=== PATIENT | male | born 1990 | race Caucasian/White ===

== ENCOUNTER → 2021-09-18 | Outpatient (CLI) | payer OTHER | LOC: HEART 5 09-12 15:30 → ECHO 13:15 | DX: R07.9 Chest pain, unspecified (principal); R60.9 Edema, unspecified | CPT/HCPCS: Q9957 ==

== ENCOUNTER → 2021-10-01 | Outpatient (CLI) | payer OTHER | LOC: KOH-I 14:30 | DX: S83.511A Sprain of anterior cruciate ligament of right knee, initial encounter (principal); M23.611 Other spontaneous disruption of anterior cruciate ligament of right knee; M25.461 Effusion, right knee | CPT/HCPCS: 73721 ==

== ENCOUNTER → 2021-11-01 | Outpatient (CLI) | payer OTHER ==
[~2021-11-01] MED LIST: HYDROCODON-ACE1 EAC4 PO; LISINOPRIL-HCT1 EAC2 PO; MOBIC15 MG PO; NORVASC5 MG PO; ROBAXIN 750 MG750 MG PO; TESTOSTERO200 MG/1 M INJ
[2021-11-01 15:04] LABS: BUN/CREATININE RATIO 13 (0-10)
== END ==
LOC: OPSV2 12:30
PROVIDERS: Anesthesiology
DX: Z01.818 Encounter for other preprocedural examination (principal); Z20.822 Contact with and (suspected) exposure to COVID-19
CPT/HCPCS: 80048; 93005

== ENCOUNTER → 2021-11-05 | Day surgery (SDC) | payer OTHER ==
[~2021-11-05] VITALS: Ht 182.9 cm; Wt 150.1 kg
== END | disposition home or self-care (01) ==
LOC: OR 05:52
DX: S83.271A Complex tear of lateral meniscus, current injury, right knee, initial encounter (principal); S83.241A Other tear of medial meniscus, current injury, right knee, initial encounter; M94.261 Chondromalacia, right knee; G47.30 Sleep apnea, unspecified; E66.01 Morbid (severe) obesity due to excess calories; I10 Essential (primary) hypertension; Z20.822 Contact with and (suspected) exposure to COVID-19; Z91.018 Allergy to other foods; Z98.1 Arthrodesis status
CPT/HCPCS: J0171; J0690; J1100; J1885; J2001; J2250; J2405; J2704; J3010; J7120